=== PATIENT | male | born 1940 ===

== ENCOUNTER 2023-09-09 16:48 | Outpatient (CLI) | payer SELFPAY | END 2023-09-09 16:49 | disposition EMS.NT | LOC: EMS 16:48 | DX: R07.89 Other chest pain (principal); M25.511 Pain in right shoulder; V43.53XA Car driver injured in collision with pick-up truck in traffic accident, initial encounter; W22.11XA Striking against or struck by driver side automobile airbag, initial encounter; Y92.413 State road as the place of occurrence of the external cause ==